=== PATIENT | female | born 1990 | race Hispanic/Latino ===

== ENCOUNTER 2021-05-20 15:37 | Emergency (ER) | payer MEDICAID ==
[~2021-05-20] VITALS: Ht 170.2 cm; Wt 126.1 kg
[2021-05-20] MEDS ORDERED: CEFTRIAXONE 1G VIAL IVP STA (16:43)
[2021-05-20] MEDS ORDERED: LIDOCAINE HCL-MPF 1% 2ML VIAL ONE (16:55)
[2021-05-20] MEDS ORDERED: CEFTRIAXONE 1G VIAL ONE (16:56)
[2021-05-20] MEDS ORDERED: AMOX-429 PO (17:53)
[2021-05-20] MEDS ORDERED: GUAI237L97 PO (17:53)
[2021-05-20] MEDS ORDERED: ACET-2247 PO (17:53)
[2021-05-20 18:13] VITALS: BP 128/70
== END 2021-05-20 18:11 | disposition home or self-care (01) ==
LOC: EDH 15:37
DX: J06.9 Acute upper respiratory infection, unspecified (principal); E11.9 Type 2 diabetes mellitus without complications; Z20.822 Contact with and (suspected) exposure to COVID-19
CPT/HCPCS: 87635; 87804 ×2; 87880; 96374; 99283; C9803; J0696; J3490

== ENCOUNTER 2021-07-03 15:05 | Emergency (ER) | payer MEDICAID ==
[~2021-07-03] VITALS: Ht 170.2 cm; Wt 124.3 kg
[~2021-07-03 15:05] MED LIST: ACET-2247 PO; AMOX-429 PO; GUAI237L97 PO
[2021-07-03 15:35] LABS: BASOPHILS % (AUTO) 0.4 % (0.0-5.0); EOSINOPHILS % (AUTO) 2.7 % (0.0-8.0); HEMATOCRIT 36.8 % (36-48); LYMPHOCYTES % (AUTO) 19.1 % (21.0-51.0); MEAN CORPUSCULAR HEMOGLOBIN 29.5 pg (27.0-33.0); MEAN CORPUSCULAR HGB CONC 33.4 g/dL (32.0-36.0); MEAN CORPUSCULAR VOLUME 88.2 fL (79-99); MONOCYTES % (AUTO) 6.1 % (3.0-13.0); NEUTROPHILS % (AUTO) 71.4 % (40.0-77.0); PLATELET COUNT (AUTO) 296 K/uL (130-400); RED BLOOD CELL COUNT(AUTO) 4.17 MIL/uL (4.00-5.50); RED CELL DISTRIBUTION WIDTH 12.3 % (11.0-15.5); WHITE BLOOD COUNT (AUTO) 10.5 K/uL (4.8-10.8)
[2021-07-03 15:45] LABS: CREATININE 0.6 mg/dL (0.5-1.5); POTASSIUM 3.5 mmol/L (3.5-5.1)
[2021-07-03 15:50] LABS: ALBUMIN 2.9 g/dL (3.5-5.0); BILIRUBIN,TOTAL 0.2 mg/dL (0.2-1.0); TOTAL PROTEIN, SERUM 7.4 g/dL (6.0-8.3)
[2021-07-03 17:41] VITALS: BP 115/64
[2021-07-03] MEDS ORDERED: ACET-66 PO (17:56)
== END 2021-07-03 18:07 | disposition home or self-care (01) ==
LOC: EDH 15:05
DX: O20.0 Threatened abortion (principal); O26.892 Other specified pregnancy related conditions, second trimester; R10.84 Generalized abdominal pain; Z3A.15 15 weeks gestation of pregnancy; Z79.899 Other long term (current) drug therapy
CPT/HCPCS: 36415; 76805; 80053; 84703; 85025

== ENCOUNTER 2023-08-03 19:09 | Emergency (ER) | payer MEDICAID ==
[~2023-08-03] VITALS: Ht 170.2 cm; Wt 119.7 kg
[~2023-08-03 19:09] MED LIST changes: +ACET-66 PO
[2023-08-03 19:28] VITALS: RESP 20
[2023-08-03] MEDS ORDERED: HYDROCODONE/ACETAMINOPHEN 5/325 MG TAB PO ONE (21:00)
[2023-08-03] MEDS ORDERED: ONDANSETRON ODT 4MG TAB SL ONE (21:00)
[2023-08-03] MEDS ORDERED: CLINDAMYCIN 150 MG CAP PO ONE (21:00)
[2023-08-03] MEDS ORDERED: IBUPROFEN 600 MG TABLET PO ONE (21:00)
[2023-08-03] MEDS ORDERED: CEFTRIAXONE 1G VIAL IM ONE (21:00)
[2023-08-03] MEDS ORDERED: IBUP-2070 PO (22:17)
[2023-08-03] MEDS ORDERED: CLIN-141 PO (22:17)
== END 2023-08-03 22:27 | disposition home or self-care (01) ==
LOC: EDH 19:09
DX: L02.211 Cutaneous abscess of abdominal wall (principal); Z98.51 Tubal ligation status
CPT/HCPCS: 99284; 96372; J0696